=== PATIENT | male | born 1965 | race Two or more races ===

== ENCOUNTER 2019-12-10 07:30 | Outpatient (CLI) | payer BC ==
[2019-12-10 15:37] LABS: #Basophils 0.1 thou/uL (0.0-0.2); #Eosinphils 0.5 thou/uL (0.0-0.7); #Lymphocytes 2.8 thou/uL (1.20-3.40); #Monocytes 0.7 thou/uL (0.11-0.59); #Neutrophils 3.7 thou/uL (1.40-6.50); %Basophils 0.8 % (0.0-1.0); %Eosinophils 6.4 % (0.0-10.0); %Monocytes 8.8 % (0.0-10.0); Hemoglobin 16.2 g/dL (14.0-18.0); Mean Corpuscular HGB CONC 35.6 g/dL (32.0-36.0); Mean Corpuscular Volume 86.9 fL (78.0-98.0); Platelet Count 206 thou/uL (130-400); RBC Distribution Width 11.3 % (11.5-14.5); Red Blood Cell (RBC) Count 5.23 mill/uL (4.70-6.10); White Blood Cell (WBC) Count 7.8 thou/uL (4.8-10.8)
[2019-12-10 16:00] LABS: ALT (SGPT) 25 U/L (8-55); AST (SGOT) 23 U/L (5-34); Albumin 4.4 g/dL (3.5-5.0); Alkaline Phosphatase 98 U/L (40-110); Anion Gap 12 mmol/L (10-20); BUN (Urea Nitrogen) 12 mg/dL (8.4-25.7); Bilirubin, Total 0.6 mg/dL (0.2-1.2); Calc. Creatinine Clearance 0 mL/min (70-130); Calcium 9.1 mg/dL (7.8-10.44); Carbon Dioxide 27 mmol/L (22-29); Chloride 102 mmol/L (98-107); Estimated GFR-MDRD 72; Globulin 2.9 g/dL (2.4-3.5); Glucose 116 mg/dL (70-105); Potassium 4.1 mmol/L (3.5-5.1); Protein, Total 7.3 g/dL (6.0-8.3); Sodium 137 mmol/L (136-145)
== END 2019-12-10 07:31 | disposition home or self-care (01) ==
LOC: LABBT 07:30
PROVIDERS: ATTEND Surgery
DX: Z01.812 Encounter for preprocedural laboratory examination (principal); K40.20 Bilateral inguinal hernia, without obstruction or gangrene, not specified as recurrent
CPT/HCPCS: 80053; 85025

== ENCOUNTER 2019-12-13 10:25 | Day surgery (SDC) | payer BC ==
[2019-12-10 14:57] VITALS: BMI 27.1
[~2019-12-13 10:25] MED LIST: Dexamethasone 20 MG/5 ML VIAL ONE; Glycopyrrolate 0.2 MG/ML 5 ML SYRINGE ONE; Lidocaine 1% PF 5 ML VIAL ONE; Ondansetron PF 4 MG/2 ML Vial ONE; PROPOFOL 200 MG/20 ML VIAL ONE; Rocuronium Bromide 10 MG/ML (10ML VIAL) ONE
[2019-12-13] MEDS ORDERED: Midazolam HCl 2 mg/2 ml Vial ONE ×2 (11:46→13:05)
[2019-12-13] MEDS ORDERED: Fentanyl 100 MCG/2 ML VIAL ONE (13:05)
[2019-12-13] MEDS ORDERED: Lidocaine 1% w/Epinephrine 1:100K 20 ML VIAL ONE (13:06)
[2019-12-13] MEDS ORDERED: Bupivacaine 0.25% HCL 30 ML VIAL ONE (13:06)
[2019-12-13] MEDS ORDERED: Meperidine HCl/PF 25 MG/ML VIAL ONE (14:58)
[2019-12-13] MEDS ORDERED: HYDROcodone/Acetaminophen 5/325 mg Tablet ONE (16:50)
--- NOTE | 2019-12-14 10:00 | OP ---
DATE OF PROCEDURE: 12/13/2019 PREOPERATIVE DIAGNOSIS: Bilateral inguinal hernia. POSTOPERATIVE DIAGNOSIS: Bilateral inguinal hernia. PROCEDURE PERFORMED: Da Wesley bilateral inguinal hernia repair with mesh, Bard 3DMax large. ANESTHESIA: General. ESTIMATED BLOOD LOSS: Minimal. COMPLICATIONS: None. SPECIMEN: None. FINDINGS: Bilateral inguinal hernia. TECHNIQUE: The patient was taken to the operating room and laid supine on the operating room table. After general anesthetic was obtained, the abdomen was shaved, prepped, and draped in a sterile fashion. A Jones catheter had been placed. A curved incision was made above the umbilicus. Cautery dissected down to and score the fascia. Abdominal cavity was entered bluntly using a Miya clamp. An 11 mm balloon trocar was placed. High-flow pneumoperitoneum was obtained. Left and right abdominal 8 mm robot trocars were placed. All ports were docked to the robot. Surgeon goes to the console. The peritoneum was taken down in the bilateral groin and bilateral preperitoneal dissection was performed all the way to pubic tubercle medially and to the anterior superior iliac crest laterally. The shelving edge of the ligament was fully exposed. On the left, there was a direct hernia. This dissected back up high onto the peritoneum with a small indirect hernia. On the right side, there was a small indirect hernia. No direct hernia. The bilateral 3DMax large mesh was brought into the abdomen and the M-labeled medial aspects were placed over pubic tubercles medially. The mesh laid out to cover the indirect, direct and femoral areas. The mesh was sewn via 2-0 Vicryl to pubic tubercle medially and to the posterior fascia laterally. The peritoneum was reapproximated using the running 3-0 Stratafix bilaterally. All needles were removed from the abdomen and accounted for. All port sites were infiltrated using local anesthetic. All ports were removed under camera visualization. Prep was let down. PDS used to close the fascial defect above the umbilicus. All incisions were irrigated and closed using 4-0 Monocryl and Dermabond. The patient was sent to Recovery in stable condition. All instrument counts, needle and counts lap counts were correct. Job ID: [id number]
== END 2019-12-13 20:20 | disposition home or self-care (01) ==
LOC: SDC 10:25
PROVIDERS: ATTEND Surgery
PROC: 0YUA4JZ Supplement Bilateral Inguinal Region with Synthetic Substitute, Percutaneous Endoscopic Approach (ICD-10-PCS; principal; 2019-12-13)
DX: K40.20 Bilateral inguinal hernia, without obstruction or gangrene, not specified as recurrent (principal); Z79.899 Other long term (current) drug therapy; Z91.011 Allergy to milk products
CPT/HCPCS: C1781; J0690; J1100; J2001; J2175; J2250; J2405; J2704; J3010; S0020

== ENCOUNTER 2021-09-25 17:00 | Outpatient (CLI) | payer BC | END 2021-09-25 17:01 | disposition home or self-care (01) | LOC: SLEEPLAB 17:00 | PROVIDERS: ATTEND Family Medicine | DX: G47.33 Obstructive sleep apnea (adult) (pediatric) (principal); R53.83 Other fatigue; R06.83 Snoring; E11.9 Type 2 diabetes mellitus without complications | CPT/HCPCS: 95806 ==